=== PATIENT | female | born 1975 | race Caucasian/White ===

== ENCOUNTER 2016-08-13 19:27 | Emergency (ER) | payer MEDICAID, OTHER ==
[~2016-08-13] VITALS: Ht 162.6 cm; Wt 46.5 kg
[~2016-08-13 19:27] MED LIST: NICO1PAT10 TD
[2016-08-13 19:28] VITALS: BP 118/75
[2016-08-13] MEDS ORDERED: IBUPROFEN 200 MG TABLET ONE (19:40)
[2016-08-13] MEDS ORDERED: IBUPROFEN 200 MG TABLET PO ONE (20:00)
== END 2016-08-13 20:15 | disposition home or self-care (01) ==
LOC: ED 20:09
DX: S67.191A Crushing injury of left index finger, initial encounter (principal); S67.193A Crushing injury of left middle finger, initial encounter; S67.195A Crushing injury of left ring finger, initial encounter; F12.10 Cannabis abuse, uncomplicated; X58.XXXA Exposure to other specified factors, initial encounter; Y93.89 Activity, other specified; Y99.8 Other external cause status; Y92.89 Other specified places as the place of occurrence of the external cause
CPT/HCPCS: 99284

== ENCOUNTER 2017-09-03 10:08 | Emergency (ER) | payer SELFPAY ==
[~2017-09-03] VITALS: Ht 162.6 cm; Wt 40.4 kg
[~2017-09-03 10:08] MED LIST changes: +NICO-485 TD; -NICO1PAT10 TD
[2017-09-03 10:12] VITALS: BP 115/66
[2017-09-03] MEDS ORDERED: AMOXICILLIN/CLAV 875-125MG TABLET ONE (10:41)
[2017-09-03] MEDS ORDERED: AMOXICILLIN/CLAV 875-125MG TABLET PO ONE (11:00)
[2017-09-03] MEDS ORDERED: DIPH,PERTUSS(ACELL),TET VAC/PF 0.5 ML IM-VACC ONE (11:22)
[2017-09-03] MEDS ORDERED: KETOROLAC 30 MG/1 ML ONE (11:22)
[2017-09-03] MEDS ORDERED: DIPH,PERTUSS(ACELL),TET VAC/PF NC IM-VACC ONE (11:30)
[2017-09-03] MEDS ORDERED: KETOROLAC 30 MG/1 ML IM ONE ×2 (11:30→12:00)
== END 2017-09-03 12:22 | disposition home or self-care (01) ==
LOC: ED 12:16
DX: S60.371A Other superficial bite of right thumb, initial encounter (principal); W50.3XXA Accidental bite by another person, initial encounter; Y93.89 Activity, other specified; Y92.410 Unspecified street and highway as the place of occurrence of the external cause; Y99.8 Other external cause status
CPT/HCPCS: 73130; 90471; 90715; 96372; 99284; J1885